=== PATIENT | male | born 1940 | race Caucasian/White ===

== ENCOUNTER → 2022-01-10 | Emergency (ER) | payer BC ==
[~2022-01-10] VITALS: Ht 188 cm; Wt 86.0 kg
[~2022-01-10] MED LIST: LORA0.5T96 PO; MECLIZINE HCL 12.5 MG TABLET. PO ONE
[2022-01-10 14:30] LABS: BASO # 0.1 x10^3/uL (0.0-0.2); BASO % 1 % (0-3); EOS # 0.1 x10^3/uL (0.0-0.7); EOS % 1 % (0-3); HEMOGLOBIN 14.6 g/dL (13.0-17.5); LYMPH # 1.5 x10^3/uL (1.0-4.8); LYMPH % 18 % (24-48); MEAN CORPUSCULAR HEMOGLOBIN 28 pg (25-35); MEAN CORPUSCULAR HGB CONC 32 g/dL (31-37); MEAN CORPUSCULAR VOLUME 85 fL (79-100); MONO # 0.5 x10^3/uL (0.0-1.1); MONO % 6 % (0-9); NEUT # 6.1 x10^3/uL (1.8-7.7); NEUT % 74 % (31-73); PLATELET COUNT 308 x10^3/uL (140-400); RED BLOOD COUNT 5.28 x10^6/uL (4.30-5.70); RED CELL DISTRIBUTION WIDTH 13.6 % (11.5-14.5); WHITE BLOOD COUNT 8.2 x10^3/uL (4.0-11.0)
[2022-01-10 14:41] LABS: PROTHROMBIN TIME PATIENT 12.8 SEC (11.7-14.0)
[2022-01-10 14:42] LABS: CALCIUM 9.2 mg/dL (8.5-10.1); CREATININE 1.2 mg/dL (0.7-1.3); GFR 58.3; POTASSIUM 4.6 mmol/L (3.5-5.1)
--- NOTE | 2022-01-10 14:46 | RAD ---
EXAMINATION: CT HEAD/BRAIN WO CLINICAL HISTORY: Dizziness. TECHNIQUE: Serial axial images without IV contrast were obtained from the vertex to the foramen magnu m. CT Dose Reduction Employed: One or more of the following individualized dose reduction techniques wer e utilized for this examination: 1. Automated exposure control 2. Adjustment of the mA and/or kV ac cording to patient size 3. Use of iterative reconstruction technique. COMPARISON: None FINDINGS: Acute Change: No evidence of an acute infarct or other acute parenchymal process. Hemorrhage: No evidence of acute intracranial hemorrhage. Mass Lesion/Mass Effect: No evidence of intracranial mass or extraaxial fluid collection. No signific ant mass effect. Chronic Change: Scattered patchy foci of hypoattenuation in the supratentorial white matter, nonspeci fic but likely represents minimal microvascular ischemia. Atherosclerotic calcification of the intrac ranial portion of the bilateral internal carotid arteries. Parenchyma: Mild generalized volume loss. Ventricles: Ventricular enlargement concordant with degree of parenchymal volume loss. Paranasal Sinuses and Skull Base: Visualized paranasal sinuses clear. Visualized skull base and soft tissues unremarkable. IMPRESSION: No evidence of acute intracranial abnormality. Electronically signed by: Leighton Urbano DO (01/10/2022 2:44 PM) [facility]
--- NOTE | 2022-01-10 14:48 | RAD ---
INDICATION: Reason: dizziness / Spl. Instructions: / History: COMPARISON: April 2006 FINDINGS: Frontal view of chest obtained. Cardiac silhouette is unremarkable. There is an air-fluid level and density projecting of the cardiac silhouette. Left lung base is obscu red by the cardiac silhouette without definite consolidation elsewhere in the lungs. IMPRESSION: * Density projecting over the heart which could be from causes such as hiatal hernia. * No definite focal airspace consolidation. Electronically signed by: Roberto Sheikh MD (01/10/2022 2:46 PM) [id number]
--- NOTE | 2022-01-10 18:00 | PHYS DOC ---
Past Medical History Past Medical History: Hypertension, Other (LISA LASSITER MD) Past Surgical History: Other (LISA LASSITER MD) Smoking Status: Never Smoker Alcohol Use: None Drug Use: None (LISA LASSITER MD) General Adult EDM: Chief Complaint: DIZZY/LIGHT HEADED HPI: HPI: Patient is a 81 year old male with a history of vertigo who presents to the [facility] department today with concerns for dizziness. Patient states that he woke up with 6:00 this morning and felt as if the room was spinning. He states this is similar to his previous episodes of vertigo. He states that the symptoms are worse when he looks down or tries to focus. He denies any focal deficits. Specifically denies any extremity weakness, numbness or tingling. He denies any chest pain or shortness of breath. He denies any headache or visual changes. He states he has been walking slower but has not had any difficulty ambulating. He states his symptoms have been constant but the intensity waxes and wanes. (LISA LASSITER MD) Review of Systems: Review of Systems: Constitutional: Denies fever or chills. [] Eyes: Denies change in visual acuity. [] HENT: Denies nasal congestion or sore throat. [] Respiratory: Denies cough or shortness of breath. [] Cardiovascular: Denies chest pain or edema. [] GI: Denies abdominal pain, nausea, vomiting, bloody stools or diarrhea. [] : Denies dysuria. [] Musculoskeletal: Denies back pain or joint pain. [] Integument: Denies rash. [] Neurologic: Denies headache, focal weakness or sensory changes. [] Endocrine: Denies polyuria or polydipsia. [] Lymphatic: Denies swollen glands. [] Psychiatric: Denies depression or anxiety. [] (LISA LASSITER MD) Heart Score: C/O Chest Pain: No (LISA LASSITER MD) Current Medications: Current Medications Medications (Trade) Dose Ordered Sig/Polian Start Time Stop Time Status Last Admin Dose Admin Lorazepam (Ativan Inj) 0.5 mg 1X ONCE 01/10/22 17:00 01/10/22 17:01 DC 01/10/22 17:09 0.5 MG Meclizine HCl (Antivert) 12.5 mg 1X ONCE 01/10/22 14:30 01/10/22 15:47 DC 01/10/22 14:43 12.5 MG (LISA LASSITER MD) Allergies: Allergies: Allergies Coded Allergies Type Severity Reaction Last Updated Verified No Known Drug Allergies 01/10/22 No (LISA LASSITER MD) Physical Exam: PE: Constitutional: Well developed, well nourished, no acute distress, non-toxic appearance. [] HENT: Normocephalic, atraumatic, bilateral external ears normal, oropharynx moist, no oral exudates, nose normal. [] Eyes: PERRLA, EOMI, conjunctiva normal, no discharge. [] Neck: Normal range of motion, no tenderness, supple, no stridor. [] Cardiovascular:Heart rate regular rhythm, no murmur [] Lungs & Thorax: Bilateral breath sounds clear to auscultation [] Abdomen: Bowel sounds normal, soft, no tenderness, no masses, no pulsatile masses. [] Skin: Warm, dry, no erythema, no rash. [] Back: No tenderness, no CVA tenderness. [] Extremities: No tenderness, no cyanosis, no clubbing, ROM intact, no edema. [] Neurologic: Alert and oriented X 3, normal motor function, normal sensory fu nction, no focal deficits noted. [] Psychologic: Affect normal, judgement normal, mood normal. [] (LISA LASSITER MD) Current Patient Data: Labs: Laboratory Tests Test 01/10/22 14:21 White Blood Count 8.2 x10^3/uL (4.0-11.0) Red Blood Count 5.28 x10^6/uL (4.30-5.70) Hemoglobin 14.6 g/dL (13.0-17.5) Hematocrit 45.0 % (39.0-53.0) Mean Corpuscular Volume 85 fL (79-100) Mean Corpuscular Hemoglobin 28 pg (25-35) Mean Corpuscular Hemoglobin Concent 32 g/dL (31-37) Red Cell Distribution Width 13.6 % (11.5-14.5) Platelet Count 308 x10^3/uL (140-400) Neutrophils (%) (Auto) 74 % (31-73) H Lymphocytes (%) (Auto) 18 % (24-48) L Monocytes (%) (Auto) 6 % (0-9) Eosinophils (%) (Auto) 1 % (0-3) Basophils (%) (Auto) 1 % (0-3) Neutrophils # (Auto) 6.1 x10^3/uL (1.8-7.7) Lymphocytes # (Auto) 1.5 x10^3/uL (1.0-4.8) Monocytes # (Auto) 0.5 x10^3/uL (0.0-1.1) Eosinophils # (Auto) 0.1 x10^3/uL (0.0-0.7) Basophils # (Auto) 0.1 x10^3/uL (0.0-0.2) Prothrombin Time 12.8 SEC (11.7-14.0) Prothrombin Time INR 1.0 (0.8-1.1) Activated Partial Thromboplast Time 31 SEC (24-38) Sodium Level 140 mmol/L (136-145) Potassium Level 4.6 mmol/L (3.5-5.1) Chloride Level 104 mmol/L (98-107) Carbon Dioxide Level 22 mmol/L (21-32) Anion Gap 14 (6-14) Blood Urea Nitrogen 17 mg/dL (8-26) Creatinine 1.2 mg/dL (0.7-1.3) Estimated GFR (Cockcroft-Gault) 58.3 Glucose Level 172 mg/dL (70-99) H Calcium Level 9.2 mg/dL (8.5-10.1) Troponin I High Sensitivity 6 ng/L (4-75) Laboratory Tests 01/10/22 14:21 Laboratory Tests 01/10/22 14:21 Vital Signs: Vital Signs Date Time Temp Pulse Resp B/P (MAP) Pulse Ox O2 Delivery O2 Flow Rate FiO2 01/10/22 17:10 98.8 57 18 154/79 (104) 97 98.8 (LISA LASSITER MD) EKG: EKG: EKG shows normal sinus rhythm with a rate of 61. There is a left axis deviation. No evidence of ischemia or infarction. (LISA LASSITER MD) Radiology/Procedures: Radiology/Procedures: PROCEDURE: PORTABLE CHEST 1V INDICATION: Reason: dizziness / Spl. Instructions: / History: COMPARISON: April 2006 FINDINGS: Frontal view of chest obtained. Cardiac silhouette is unremarkable. There is an air-fluid level and density projecting of the cardiac silhouette. Left lung base is obscured by the cardiac silhouette without definite consolidation elsewhere in the lungs. IMPRESSION: * Density projecting over the heart which could be from causes such as hiatal hernia. * No definite focal airspace consolidation. Electronically signed by: Roberto Sheikh MD (01/10/2022 2:46 PM) [id number] PROCEDURE: CT HEAD WO CONTRAST EXAMINATION: CT HEAD/BRAIN WO CLINICAL HISTORY: Dizziness. TECHNIQUE: Serial axial images without IV contrast were obtained from the vertex to the foramen magnum. CT Dose Reduction Employed: One or more of the following individualized dose reduction techniques were utilized for this examination: 1. Automated exposure control 2. Adjustment of the mA and/or kV according to patient size 3. Use of iterative reconstruction technique. COMPARISON: None FINDINGS: Acute Change: No evidence of an acute infarct or other acute parenchymal process. Hemorrhage: No evidence of acute intracranial hemorrhage. Mass Lesion/Mass Effect: No evidence of intracranial mass or extraaxial fluid collection. No significant mass effect. Chronic Change: Scattered patchy foci of hypoattenuation in the supratentorial white matter, nonspecific but likely represents minimal microvascular ischemia. Atherosclerotic calcification of the intracranial portion of the bilateral internal carotid arteries. Parenchyma: Mild generalized volume loss. Ventricles: Ventricular enlargement concordant with degree of parenchymal volume loss. Paranasal Sinuses and Skull Base: Visualized paranasal sinuses clear. Visualized skull base and soft tissues unremarkable. IMPRESSION: No evidence of acute intracranial abnormality. Electronically signed by: Leighton Urbano DO (01/10/2022 2:44 PM) [facility] Impression: Vertigo (LISA LASSITER MD) Course & Med Decision Making: Course & Med Decision Making Patient evaluated the bedside. No focal neurodeficits on exam. Patient NIH stroke scale is 0. Patient states this is similar to his previous episodes of vertigo. Basic labs obtained and unremarkable. Chest x-ray and EKG show no acute abnormalities. His head CT is negative. Patient was treated at the bedside initially with meclizine which mildly improved his symptoms. He was subsequently given 0.5 mg of Ativan and his symptoms resolved. Patient was able to ambulate in the emergency department without difficulty or any further jason tigo. We will discharge him home with a short course of as needed Ativan and have him follow with his PCP next week. (LISA LASSITER MD) Dragon Disclaimer: Dragon Disclaimer: This electronic medical record was generated, in whole or in part, using a voice recognition dictation system. (LISA LASSITER MD) Departure Departure Disposition: HOME / SELF CARE / HOMELESS Condition: IMPROVED Referrals: LEELEE PARK DO (PCP) Patient Instructions: Vertigo Scripts Lorazepam (ATIVAN) 0.5 Mg Tablet 0.5 MG PO TID PRN PRN for DIZZINESS, #7 TAB Prov: LALO CARRILLO APRN 01/10/22 LISA LASSITER MD January 10, 2022 17:59 LALO CARRILLO APRN January 10, 2022 18:05
[2022-01-10 18:02] VITALS: BP 154/79
--- NOTE | 2022-01-11 01:47 | EKG ---
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
== END | disposition home or self-care (01) ==
LOC: ER 14:01
DX: R42 Dizziness and giddiness (principal); I10 Essential (primary) hypertension
CPT/HCPCS: 36415; 70450; 71045; 80048; 84484; 85025; 85610; 85730; 93005; 96374; 99285; J2060; J8597